=== PATIENT | female | born 1960 | race Caucasian/White ===

== ENCOUNTER → 2016-09-11 | Outpatient (CLI) | payer BC ==
--- NOTE | 2016-09-12 06:53 | MM ---
Reason for exam: screening (asymptomatic). Last mammogram was performed 2 years and 10 months ago. History: Patient is nulliparous. Benign right mammotome panel of the right breast, December 20, 2006. Took hormonal contraceptives for 10 years beginning at age 32. Physical Findings: A clinical breast exam by your physician is recommended on an annual basis and results should be correlated with mammographic findings. MG 3D Screening Mammo W/Cad Bilateral CC and MLO view(s) were taken. Prior study comparison: November 09, 2013, bilateral digital screening mammo w/CAD. July 25, 2012, CAD bilateral diagnostic mammogram. January 29, 2011, [facility] DIGITAL LEFT BREAST MAMMOGRAM w/CAD. The breast tissue is heterogeneously dense. This may lower the sensitivity of mammography. Previous mammotome biopsy in the right breast. New 1.4cm mass posterior upper outer quadrant right breast. A nodular asymmetry medial right breast posteriorly appears more defined. ASSESSMENT: Incomplete: need additional imaging evaluation, BI-RAD 0 RECOMMENDATION: Special view mammogram of the right breast. If lesion persists on supplemental views, image directed ultrasound is recommended. [facility] will attempt to contact patient to return for supplemental views and ultrasound if indicated.
== END | disposition home or self-care (01) ==
LOC: RADMAMWWP 06:54
PROVIDERS: ATTEND Internal Medicine
DX: Z12.31 Encounter for screening mammogram for malignant neoplasm of breast (principal)
CPT/HCPCS: 77063; G0202

== ENCOUNTER → 2016-09-13 | Outpatient (CLI) | payer BC ==
--- NOTE | 2016-09-17 08:17 | MM ---
Reason for exam: additional evaluation requested from abnormal screening. Last mammogram was performed less than 1 month ago. History: Patient is nulliparous. Benign right mammotome panel of the right breast, December 20, 2006. Took hormonal contraceptives for 10 years beginning at age 32. Physical Findings: Nurse Summary: 1cm nodule in the right breast at 1 o'clock (nurse kp). MG 3D Work Up W/Cad RT LM, spot compression CC, spot compression CCRL, and spot compression LM view(s) were taken of the right breast. Prior study comparison: September 11, 2016, bilateral MG 3d screening mammo w/cad. November 09, 2013, bilateral digital screening mammo w/CAD. The breast tissue is heterogeneously dense. This may lower the sensitivity of mammography. Finding: There is a 12 mm equal density (isodense), round mass in the upper outer quadrant of the right breast. Questionable 4.3mm nodule in the medial right breast. New finding since September 11, 2016 and November 09, 2013. These results were verbally communicated with the patient and result sheet given to the patient on 09/13/16. ASSESSMENT: Incomplete: need additional imaging evaluation, BI-RAD 0 RECOMMENDATION: Ultrasound of the right breast.
--- NOTE | 2016-09-17 08:20 | USB ---
Reason for exam: additional evaluation requested from abnormal screening. History: Patient is nulliparous. Benign right mammotome panel of the right breast, December 20, 2006. Took hormonal contraceptives for 10 years beginning at age 32. US Breast Workup RT Right breast ultrasound including all four quadrants, the retroareolar region and axilla demonstrates a 0.95 x 0.65 x 0.94cm mixed lesion at 6 o'clock, a 0.32 x 0.19 x 0.28cm lesion too small to characterize at 8 o'clock, a 0.56 x 0.46 x 0.54cm solid lesion at 9 o'clock for which a biopsy is recommended and a 1.01 x 0.82 x 0.94cm mixed lesion at 9:30. These results were verbally communicated with the patient and result sheet given to the patient on 09/13/16. ASSESSMENT: Suspicious, BI-RAD 4 RECOMMENDATION: Ultrasound core biopsy of the right breast. Called Dr. Renner with mammographic findings and has scheduled an appointment for the patient for 10/17/16 at 3:[address] Lim. Biopsy scheduled for 09/26/16 at 12:20. PRELIMINARY REPORT CALLED AND FAXED TO DR. LIM ON 09/17/16 AT 300/TP.
== END | disposition home or self-care (01) ==
LOC: RADMAMWWP 14:02
PROVIDERS: ATTEND Internal Medicine
DX: R92.8 Other abnormal and inconclusive findings on diagnostic imaging of breast (principal)
CPT/HCPCS: 76641; G0206; G0279

== ENCOUNTER → 2016-09-26 | Day surgery (SDC) | payer BC ==
--- NOTE | 2016-09-26 13:37 | USB ---
EXAMINATION TYPE: US discontinued breast core RT DATE OF EXAM: 09/26/2016 12:52 PM COMPARISON: 09/13/2016 ultrasound HISTORY: Previous abnormal ultrasound TECHNIQUE: Real-time linear array sonography is performed with attention to the approximate 9:00 midd le position right breast. FINDINGS: Persistent suspicious abnormality is not identified. There is in the antiradial projection between 2 lobes some falloff in hypodensity which appears to correspond to the previous abnormality. However, orthogonal radial imaging this area appears normal with elongation into normal parenchymal l obes. No persistent suspicious mass or hypodensity is evident. No persistent shadowing is evident. Real-time observation is performed. Correlation was made with the previous examination. No additional suspicious areas are within this region. The patient scheduled biopsy was aborted at this time. IMPRESSION: 1. Probably benign findings. 2. BI-RADS 3 Recommendations: 1. Follow-up right breast ultrasound 6 months. 2. Patient should continue monthly self breast exam. 3. Without suspicious radiographic findings, the decision to biopsy would be limited to abnormal clin ical findings. 4. Repeat imaging or additional diagnostic workup could be performed for changing clinical findings.
== END ==
LOC: RADUSWWP 11:28
PROVIDERS: ATTEND Surgery
DX: R92.8 Other abnormal and inconclusive findings on diagnostic imaging of breast (principal); Z53.20 Procedure and treatment not carried out because of patient's decision for unspecified reasons

== ENCOUNTER → 2017-09-17 | Outpatient (CLI) | payer BC ==
--- NOTE | 2017-09-17 10:29 | USB ---
Reason for exam: follow-up at short interval from prior study. History: Patient is nulliparous. US discontinued breast core RT of the right breast, September 26, 2016. Benign right mammotome panel of the right breast, December 20, 2006. Took hormonal contraceptives for 10 years beginning at age 32. Physical Findings: Nurse did not find any significant physical abnormalities on exam. US Breast RT Right breast ultrasound includes all four quadrants, the retroareolar region and axilla. Finding demonstrates a 0.6 x 0.3 x 0.5cm oval, cystic lesion at 1 o'clock and a 0.7 x 0.7 x 0.8cm oval, cystic lesion at 9 o'clock, seen on previous. Sonographic finding are benign but patient is due for a mammogram.. These results were verbally communicated with the patient and result sheet given to the patient on 09/17/17. ASSESSMENT: Incomplete: need additional imaging evaluation, BI-RAD 0 RECOMMENDATION: Follow-up diagnostic mammogram of both breasts.
--- NOTE | 2017-09-17 10:32 | MM ---
Reason for exam: additional evaluation requested from abnormal screening. Last mammogram was performed 1 year ago. History: Patient is nulliparous. US discontinued breast core RT of the right breast, September 26, 2016. Benign right mammotome panel of the right breast, December 20, 2006. Took hormonal contraceptives for 10 years beginning at age 32. MG 3D Diag Mammo W/Cad CARLEEN Bilateral CC and MLO view(s) were taken. Prior study comparison: September 13, 2016, right breast MG 3d work up w/cad RT. September 11, 2016, bilateral MG 3d screening mammo w/cad. November 09, 2013, bilateral digital screening mammo w/CAD. July 25, 2012, CAD bilateral diagnostic mammogram. The breast tissue is heterogeneously dense. This may lower the sensitivity of mammography. There is a 1.0cm right mass at posterior depth at the 9 o'clock position appearing slightly smaller than in 2017, however this was not seen on other priors. Ultrasound was performed with no sonographic correlate. 6 month follow up diagnostic right mammogram and ultrasound are recommended. Other right masses correspond to sonographic cysts. No suspicious abnormality in the left breast. Stable left focal asymmetry back to 2013. These results were verbally communicated with the patient and result sheet given to the patient on 09/17/17. ASSESSMENT: Probably benign, BI-RAD 3 RECOMMENDATION: Follow-up diagnostic mammogram and ultrasound of the right breast in 6 months.
== END | disposition home or self-care (01) ==
LOC: RADUSWWP 07:32
PROVIDERS: ATTEND Internal Medicine
DX: R92.8 Other abnormal and inconclusive findings on diagnostic imaging of breast (principal)
CPT/HCPCS: 77066; 76641; G0279

== ENCOUNTER → 2017-09-17 | Outpatient (CLI) | payer BC ==
--- NOTE | 2017-09-17 10:58 | BD ---
EXAMINATION TYPE: MG DEXA axial skeleton. DATE OF EXAM: 09/17/2017 CLINICAL HISTORY: Osteoporosis screening. Postmenopausal female. Height: 67.25 Weight: 227 FRAX RISK QUESTIONS: Alcohol (3 or more units per day): no Family History (Parent hip fracture): no Glucocorticoids (More than 3mos): no (Ex: prednisone, prednisolone, methylprednisolone, dexamethasone, and hydrocortisone). History of Fracture in Adulthood: no Secondary Osteoporosis: 1. Type 1 Diabetes: no 2. Hyperthyroidism: no 3. Menopause before 45: n/a 4. Malnutrition: no 5. Chronic liver disease: no Rheumatoid Arthritis: no Current Tobacco Use: no RISK FACTORS HISTORY OF: History Of Hip surgery: yes, as child; bilateral osteotomy Family History of Osteoporosis: no Active: no Diet low in dairy products/other sources of calcium: no Postmenopausal woman: no If Premenopausal, do you have irregular periods: yes, LMP May 2017 Take estrogen and/or progesterone medications: not now How long: about 10 years hormonal contraceptives Lost more than 2 inches in height since high school: no Frequent falls: no Poor Health: no Hyperparathyroidism: no Adrenal Insufficiency: no MEDICATIONS: Prednisone or other steroids: no Thyroid Medications: yes Which medication: Cor[place] How Long: at least 15 years Osteoporosis Medications:no Additional Medications: calcium, blood pressure meds Additional History: Hashimotos EXAM MEASUREMENTS: Bone mineral densitometry was performed using the [employer] System. Bone mineral density as measured about the Lumbar spine is: ----- L1-L4(G/cm2): 1.177 T Score Values are as follows: ----- L2: -0.3 ----- L3: -0.9 ----- L4: 1.3 ----- L1-L4: 0.0 Bone mineral density BASELINE Bone mineral density about the R hip (g/cm2): 0.996 Bone mineral density about the L hip (g/cm2): 0.955 T Score values are as follows: -----R Neck: -0.3 -----L Neck: -0.6 -----R Total: -0.2 -----L Total: -1.0 Bone mineral density BASELINE IMPRESSION: Normal (Values between +1 and -1 indicate normal bone mass). Consider repeating this study in 5 year s or sooner if there is some new clinical indication. NOTE: T-SCORE=SD OF THE YOUNG ADULT MEAN.
== END | disposition home or self-care (01) ==
LOC: RADBDWWP 07:34
PROVIDERS: ATTEND Obstetrics & Gynecology
DX: Z13.820 Encounter for screening for osteoporosis (principal)
CPT/HCPCS: 77080

== ENCOUNTER → 2018-08-11 | Outpatient (CLI) | payer BC ==
--- NOTE | 2018-08-12 15:16 | USB ---
Reason for exam: follow-up at short interval from prior study. History: Patient is nulliparous. US discontinued breast core RT of the right breast, September 26, 2016. Benign right mammotome panel of the right breast, December 20, 2006. Took hormonal contraceptives for 10 years beginning at age 32. Physical Findings: Nurse did not find any significant physical abnormalities on exam. US Breast RT Right complete breast ultrasound includes all four quadrants, the retroareolar region and axilla. Finding demonstrates No cystic or solid lesion seen. These results were verbally communicated with the patient and result sheet given to the patient on 08/11/18. ASSESSMENT: Probably benign, BI-RAD 3 RECOMMENDATION: Follow-up diagnostic mammogram of both breasts in 2 months. Patient is due for annual in September. Back on schedule.
== END ==
LOC: RADUSWWP 08:50
PROVIDERS: ATTEND Internal Medicine
DX: R92.8 Other abnormal and inconclusive findings on diagnostic imaging of breast (principal)

== ENCOUNTER → 2018-08-28 | Outpatient (CLI) | payer BC ==
--- NOTE | 2018-08-28 20:57 | CONS ---
CONSULTATION DATE OF SERVICE: 08/28/2018 58-year-old lady who has been evaluated in [facility] Center for difficulties to initiate sleep and multiple awakenings from sleep with snoring. HISTORY OF PRESENT ILLNESS/SLEEP-WAKE EVALUATION: SLEEP SCHEDULE: Patient's usual sleep schedule on working days from 9:30 p.m. until 4:30 pm and on weekends from around 11 p.m. to 6 a.m. FALLING ASLEEP: She does have problem falling asleep. Has TV set in bedroom. DURING SLEEP: She usually sleeps on the side position and wakes up from sleep every 1-1/2 to 3 hours sleep about 3 times per night with 1 episode of nocturia. No history of hypnagogic hallucinations, sleep paralysis or cataplexy. DURING THE DAY/SLEEP WAKE EVALUATION: In the morning patient wakes up tired make her sleepy during the day. [place] Sleepiness Scale is 8. Usually she does not take any naps. 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 PAST SURGICAL HISTORY: Surgical treatment of carpal tunnel syndrome, surgery for correction of position of low jaw 36 years ago. MEDICATIONS: Bisoprolol, hydrochlorothiazide and thyroid supplement. SOCIAL HISTORY: Negative for smoking. Alcohol consumption occasional. FAMILY HISTORY: Thyroid problems. REVIEW OF SYSTEMS: Difficult to initiate sleep, multiple awakenings from sleep, tiredness, sleepiness during the day. PHYSICAL EXAM: lady without distress. BP 126/79, HR 70, RR 16, height 5 feet 7 inches, weight 235 pounds. Body mass index 36.8, temperature 98.4, oxygen saturation at room air 95%. Oropharynx extremely low position of soft palate, Mallampati 4, wide neck is 17-1/4 inches in circumference. Abdomen slightly obese. Neck Supple, no JVD. Thyroid is not palpable. LUNGS Clear to percussion and to auscultation. Good air exchange. No wheezing or rhonchi. HEART S1, S2 regular. No murmurs, gallops, or rubs. ABDOMEN Soft and nontender. Bowel sounds are present. No organomegaly appreciated. EXTREMITIES No clubbing or cyanosis. DEEP FAT FRY COOK Awake, alert, and oriented X3. Cranial nerves 2 to 7 intact. There is no fasciculation or atrophy. noted. No focal deficits observed. IMPRESSION: 1. Snoring, multiple awakenings from sleep, extremely low position of soft palate, wide neck, obstructive sleep apnea-hypopnea syndrome. 2. Obesity, BMI 36.8. 3. Hypertension. 4. Hypothyroidism secondary to Montez's thyroiditis. 5. Status post surgical treatment of carpal tunnel syndrome bilaterally. 6. Status post low jaw surgery for correction of position of the jaw at age of 22. PLAN: 1. Polysomnography for evaluation of patient's breathing during sleep. 2. CPAP/BiPAP titration if sleep study confirms obstructive sleep apnea-hypopnea syndrome. 3. Preferable position during sleep on the side. 4. No driving if patient feels any sleepiness. 5. I will see patient for follow up visit to explain results of testing and following plan. Psychological techniques for treatment of insomnia should include stimulus control, paradoxical intention, worry time, no watching clock in bedroom. Thank you very much for referring this patient for consultation. Sincerely, Fernando Dean MD, PhD, FAASM Diplomat of [employer] Lumber Scaler of [facility] [place] MMODL / MELISSAN: [id number] /
== END ==
LOC: SLEEP 15:18
PROVIDERS: ATTEND Internal Medicine
DX: G47.33 Obstructive sleep apnea (adult) (pediatric) (principal); E66.9 Obesity, unspecified; I10 Essential (primary) hypertension; E03.9 Hypothyroidism, unspecified; E06.3 Autoimmune thyroiditis; Z98.890 Other specified postprocedural states; Z99.89 Dependence on other enabling machines and devices; Z79.899 Other long term (current) drug therapy; Z68.36 Body mass index [BMI] 36.0-36.9, adult
CPT/HCPCS: 99211

== ENCOUNTER → 2018-10-30 | Outpatient (CLI) | payer BC ==
--- NOTE | 2018-10-30 18:37 | PN ---
PROGRESS NOTE DATE OF SERVICE: 10/30/2018 This patient is a 58-year-old lady who has been followed in Sleep Center and is here to discuss results of her sleep study and the following plan. I discussed results of her sleep study with the patient in detail. Sleep study showed moderate obstructive sleep apnea-hypopnea syndrome with apnea-hypopnea index 19.3 and oxygen desaturation to 68.8%. Oxygen was below normal for 11.2 minutes during the sleep study. Also sleep study showed moderate periodic limb movements, 42.4 per hour with 2.2 microarousals per hour. There were some abnormalities of sleep architecture with a low amount of delta sleep and REM sleep. [place] Sleepiness Scale today is 7. MEDICATIONS: 1. Bisoprolol. 2. Hydrochlorothiazide. 3. Thyroid supplement. PHYSICAL EXAMINATION: GENERAL: A pleasant patient in no distress. VITAL SIGNS: BP 152/87, HR 80, RR 16, height 5 feet 7 inches, weight 237, BMI 37. Oxygen saturation at room air 97%. HEENT: PERRLA, EOMI. Evaluation of oropharynx showed tongue protrudes midline. Low position of soft palate. Mallampati IV. Slight restriction of nasal breathing. NECK: Supple. No JVD. Thyroid is not palpable. LUNGS: Clear to percussion and to auscultation. Good air exchange. No wheezing or rhonchi. HEART: S1, S2 regular. No murmurs, gallops or rubs. ABDOMEN: Slightly obese. EXTREMITIES: No clubbing or cyanosis. HEALTH CARE MARKETING MANAGER: Awake, alert, and oriented X3. Cranial nerves 2 to 7 intact. There is no fasciculation or atrophy. noted. No focal deficits observed. IMPRESSION: 1. Moderate obstructive sleep apnea-hypopnea syndrome. 2. Moderate periodic limb movements have been documented during the sleep study. 3. Hypertension. 4. Hypothyroidism secondary to history of Montez's thyroiditis. 5. Status post surgical treatment for carpal tunnel syndrome. 6. Status post low jaw surgery for correction of position of jaw after injury at the age of 22. PLAN: 1. We discussed with the patient different options for treatment of sleep apnea, including surgical options, oral appliances, CPAP treatment, losing weight. My recommendation is still to start with CPAP therapy. The patient has difficulties tolerating anything on her face. Consequently I believe it would be useful to do desensitization with the smallest nasal pillow mask, like AirFit P10. 2. Sleep hygiene with regular time in bed for at least 8 hours. 3. Losing weight. 4. No driving if feeling any sleepiness. 5. CPAP titration after desensitization. Thank you very much for allowing me to participate in the management of your patient. Sincerely, Fernando Dean MD, PhD, FAASM Diplomat of [place] [employer] [place] [employer] Maritime Pilot of [facility] [place] MMODL / MELISSAN: [phone] /
== END ==
LOC: SLEEP 14:59
PROVIDERS: ATTEND Internal Medicine
DX: G47.33 Obstructive sleep apnea (adult) (pediatric) (principal); G47.61 Periodic limb movement disorder; I10 Essential (primary) hypertension; E03.9 Hypothyroidism, unspecified; Z98.890 Other specified postprocedural states; Z79.899 Other long term (current) drug therapy

== ENCOUNTER → 2019-02-05 | Outpatient (CLI) | payer BC ==
--- NOTE | 2019-02-05 19:55 | PN ---
PROGRESS NOTE DATE OF SERVICE: 02/05/2019 This patient is a 58-year-old lady who has been followed in Sleep Center for treatment of obstructive sleep apnea-hypopnea syndrome. The patient has moderate obstructive sleep apnea-hypopnea syndrome with apnea-hypopnea index 19.3, and recently she has had some problems with usage of the CPAP equipment secondary to claustrophobia, but now comes in for follow-up visit after starting to use her CPAP equipment, and she is pretty successful with using CPAP with a small nasal pillow, AirFit P10 mask. She does not have episodes of dizziness, which she had before when she was not on treatment with CPAP. [place] Sleepiness Scale today is 4. I checked her CPAP unit. CPAP pressure is in the range of 5 to 13, average pressure 12.3. Leak is 11 L/minute, which is acceptable. Usage is 28/30 nights, and all those nights for more than 4 hours; average usage 7.2 hours per night. Apnea-hypopnea index is only 1.0, which is normal. MEDICATIONS: 1. Bisoprolol. 2. Hydrochlorothiazide. 3. Thyroid supplement. PHYSICAL EXAMINATION: GENERAL: A pleasant patient in no distress. VITAL SIGNS: BP 115/74, HR 87, RR 14, temperature 98.2. Weight 236, height 5 feet 8 inches, body mass index 36. HEENT: PERRLA, EOMI. Evaluation of oropharynx showed tongue protrudes midline. Extremely low position of soft palate. Mallampati IV. NECK: Supple. No JVD. Thyroid is not palpable. LUNGS: Clear to percussion and to auscultation. Good air exchange. No wheezing or rhonchi. HEART: S1, S2 regular. No murmurs, gallops or rubs. ABDOMEN: Obese. EXTREMITIES: No clubbing or cyanosis. APPARATUS OPERATOR: Awake, alert, and oriented X3. Cranial nerves 2 to 7 intact. There is no fasciculation or atrophy. noted. No focal deficits observed. IMPRESSION: 1. Moderate obstructive sleep apnea-hypopnea syndrome; apnea-hypopnea index 19.3. Patient has demonstrated great compliance with treatment on CPAP, benefitting from treatment. 2. Obesity; body mass index 36. 3. Hypertension. 4. Hypothyroidism secondary to history of Montez's thyroiditis. 5. Status post surgical treatment for carpal tunnel syndrome, both hands. 6. Status post low jaw surgery for correction of position of jaw after injury at age 22. PLAN: 1. Patient will continue to use CPAP equipment every night for the whole night. 2. We will maintain prescriptions for all necessary CPAP supplies, including mask, tube, filters. 3. Losing weight. 4. Sleep hygiene with regular time bed for at least 8 hours. 5. No driving if feeling any sleepiness. 6. Follow-up visit in one year; earlier if patient has any problems. Thank you very much for allowing me to participate in the management of your patient. Sincerely, Fernando Dean MD, PhD, FAASM Diplomat of [employer] Steward/Stewardess Second Class of [facility] [place] MMODL / MELISSAN: [phone] /
== END ==
LOC: SLEEP 15:17
PROVIDERS: ATTEND Internal Medicine
DX: G47.33 Obstructive sleep apnea (adult) (pediatric) (principal); E66.9 Obesity, unspecified; I10 Essential (primary) hypertension; E03.9 Hypothyroidism, unspecified; E06.3 Autoimmune thyroiditis; Z98.890 Other specified postprocedural states; Z99.89 Dependence on other enabling machines and devices; Z79.899 Other long term (current) drug therapy; Z68.36 Body mass index [BMI] 36.0-36.9, adult

== ENCOUNTER → 2019-04-27 | Outpatient (CLI) | payer BC ==
--- NOTE | 2019-04-28 13:39 | MM ---
Reason for exam: additional evaluation requested from prior study. Last mammogram was performed 1 year and 7 months ago. History: Patient is postmenopausal and is nulliparous. US discontinued breast core RT of the right breast, September 26, 2016. Benign right mammotome panel of the right breast, December 20, 2006. Took hormonal contraceptives for 10 years beginning at age 32. Physical Findings: Nurse did not find any significant physical abnormalities on exam. MG 3D Diag Mammo W/Cad CARLEEN Bilateral CC and MLO view(s) were taken. Prior study comparison: September 17, 2017, bilateral MG 3d diag mammo w/cad CARLEEN. September 13, 2016, right breast MG 3d work up w/cad RT. The breast tissue is heterogeneously dense. This may lower the sensitivity of mammography. The right masses have resolved on mammogram, prior sonographic cysts. Left lateral asymmetry 4.5cm from nipple. These results were verbally communicated with the patient and result sheet given to the patient on 04/27/19. ASSESSMENT: Incomplete: need additional imaging evaluation, BI-RAD 0 RECOMMENDATION: Ultrasound of the left breast. (lateral)
--- NOTE | 2019-04-28 13:40 | USB ---
Reason for exam: additional evaluation requested from abnormal screening. History: Patient is postmenopausal and is nulliparous. US discontinued breast core RT of the right breast, September 26, 2016. Benign right mammotome panel of the right breast, December 20, 2006. Took hormonal contraceptives for 10 years beginning at age 32. US Breast Limited LT Left limited breast ultrasound including focal area of concern, retroareolar and axilla demonstrates a 0.4 x 0.5 x 0.3cm oval, cystic lesion at 3 o'clock, a 0.5 x 0.5 x 0.4cm round, hyperechoic lesion at 3 o'clock, a 0.4 x 0.3 x 0.2cm oval, cystic lesion at 6 o'clock and a 1.8 x 1.1 x 0.9cm nodes at the axilla. These results were verbally communicated with the patient and result sheet given to the patient on 04/27/19. ASSESSMENT: Benign, BI-RAD 2 RECOMMENDATION: Routine screening mammogram of both breasts in 1 year.
== END | disposition home or self-care (01) ==
LOC: RADMAMWWP 07:01
PROVIDERS: ATTEND Internal Medicine
DX: R92.8 Other abnormal and inconclusive findings on diagnostic imaging of breast (principal)
CPT/HCPCS: 77062; 77066

== ENCOUNTER → 2021-12-21 | Outpatient (CLI) | payer BC ==
--- NOTE | 2021-12-21 09:09 | US ---
EXAMINATION TYPE: US thyroid st tissue head/neck DATE OF EXAM: 12/21/2021 COMPARISON: Prior ultrasound 2012 CLINICAL HISTORY: E03.9 HYPOTHYROID. Hypothyroid GLAND SIZE: Right Lobe: 4.4 x 1.8 x 1.6 cm Overall Parenchyma: heterogenous Left Lobe: 3.7 x 1.4 x 0.9 cm Overall Parenchyma: heterogeneous Isthmus Thickness: 0.5 cm NODULES RIGHT: # of nodules measured on right: 0 LEFT: # of nodules measured on left: 0 ISTHMUS: # of nodules measured in the isthmus: 0 Bilateral neck scanned, no evidence of lymphadenopathy. Heterogeneous thyroid bilaterally without dis crete nodule visualized. Heterogeneous somewhat small sized thyroid without discrete nodule. IMPRESSION: As above
--- NOTE | 2021-12-21 22:41 | US ---
EXAMINATION TYPE: US abdomen complete DATE OF EXAM: 12/21/2021 COMPARISON: NONE CLINICAL HISTORY: R74.8 ELEVATED LIVER ENZYMES. Elevated, LFT's EXAM MEASUREMENTS: Liver Length: 20.5 cm Gallbladder Wall: 0.2 cm CBD: 0.4 cm Spleen: 13.0 cm Right Kidney: 11.0 x 4.3 x 5.9 cm Left Kidney: 11.6 x 5.5 x 5.1 cm Pancreas: wnl, tail obscured by overlying bowel gas Liver: Enlarged, heterogeneous Gallbladder: Probable polyp= 0.3 cm Evidence for sonographic Jimenez's sign: No CBD: wnl Spleen: Upper limits of normal for size Right Kidney: wnl Left Kidney: wnl Upper IVC: wnl Abd Aorta: wnl The visualized liver is heterogeneously hyperechoic. Hepatomegaly is present. Evaluation for focal m asses suboptimal due to the heterogeneity. No surrounding ascites. The intrahepatic portion of the IV C and visualized abdominal aorta are within normal limits. There is no evidence of shadowing mobile cholelithiasis. Incidental tiny 3 mm polyp. No intrahepatic or extrahepatic biliary dilatation. The v isualized portions of the pancreas are homogenous. The spleen is unremarkable. Kidneys are symmetri c and free of hydronephrosis. No renal lesions are seen. IMPRESSION: Heterogeneous hyperechoic appearance of liver consistent with diffuse fatty infiltration and/or underlying hepatocellular disease.
--- NOTE | 2021-12-22 14:03 | MM ---
Reason for Exam: Screening (asymptomatic). Last mammogram was performed 2 year(s) and 8 month(s) ago. Patient History: Menarche at age 17. Patient has no children. Right ovary removed at age 46. Postmenopausal. Hormonal Contraceptives for 10 years from age 32 until age 42. 12/20/2006, Benign Core Biopsy on the right side. 09/26/2016, US discontinued breast core RT on the right side. Risk Values: Elaina 5 year model risk: 1.7%. NCI Lifetime model risk: 8.9%. Prior Study Comparison: 09/13/2016 Right Diagnostic Mammogram, [facility]. 09/17/2017 Bilateral Diagnostic Mammogram, [facility]. 04/27/2019 Bilateral Diagnostic Mammogram, [facility]. Tissue Density: The breast tissue is heterogeneously dense. This may lower the sensitivity of mammography. Findings: Analyzed By CAD. There is a focal asymmetry within the posterior right breast which appears to be an interval change on the craniocaudal view. Additional workup is recommended. There are new grouped round findings calcifications within the posterior right cranial caudal view not clearly evident on the mediolateral view. Additional workup of these calcifications is recommended. This could be artifact not identified on the tomographic images. Overall Assessment: Incomplete: need additional imaging evaluation, BI-RAD 0 Management: Diagnostic Mammogram of the right breast. A clinical breast exam by your physician is recommended on an annual basis and results should be correlated with mammographic findings. Electronically signed and approved by: Ernesto Moncada D.O. Radiologis
== END | disposition home or self-care (01) ==
LOC: RADMAMWWP 07:45
PROVIDERS: ATTEND Internal Medicine
DX: Z12.31 Encounter for screening mammogram for malignant neoplasm of breast (principal); E03.9 Hypothyroidism, unspecified; R74.8 Abnormal levels of other serum enzymes
CPT/HCPCS: 76536; 76700; 77063; 77067

== ENCOUNTER → 2021-12-26 | Outpatient (CLI) | payer BC ==
--- NOTE | 2021-12-28 13:48 | MM ---
Reason for Exam: Additional evaluation requested from abnormal screening. Last screening mammogram was performed less than 1 month ago. Patient History: Menarche at age 17. Patient has no children. Right ovary removed at age 46. Postmenopausal. Hormonal Contraceptives for 10 years from age 32 until age 42. 12/20/2006, Benign Core Biopsy on the right side. 09/26/2016, US discontinued breast core RT on the right side. Risk Values: Elaina 5 year model risk: 1.7%. NCI Lifetime model risk: 8.9%. Tissue Density: Right: The breast tissue is heterogeneously dense. This may lower the sensitivity of mammography. Findings: Analyzed By CAD. Centrally located asymmetric density on the CC view shows no persisting abnormality on 3-D images, appearance unchanged compared back to 2017. A solitary round calcification far posterior 12:00 right breast is unchanged. A few punctate calcifications just adjacent have developed. Six-month follow-up recommended. A benign etiology is suspected. Overall Assessment: Probably benign, BI-RAD 3 Management: Diagnostic Mammogram of the right breast in 6 months. 1. Six-month follow-up diagnostic right breast mammogram for subtle group of round/punctate 12:00 posterior right breast calcifications. 2. Patient should continue monthly self breast exams. 3. This exam should not preclude additional follow-up of suspicious palpable abnormalities. Electronically signed and approved by: Sunshine Milligan M.D. Radiologist
== END | disposition home or self-care (01) ==
LOC: RADMAMWWP 10:12
PROVIDERS: ATTEND Internal Medicine
DX: R92.8 Other abnormal and inconclusive findings on diagnostic imaging of breast (principal)
CPT/HCPCS: 77061; 77065

== ENCOUNTER → 2022-03-02 | Outpatient (CLI) | payer BC | END | disposition home or self-care (01) | LOC: LABWHC1 10:50 | PROVIDERS: ATTEND Internal Medicine | DX: U07.1 COVID-19 (principal) | CPT/HCPCS: 87635 ==

== ENCOUNTER → 2022-07-09 | Outpatient (CLI) | payer BC ==
--- NOTE | 2022-07-09 07:54 | MM ---
Reason for Exam: Follow-up at short interval from prior study. Last screening mammogram was performed 6 month(s) ago. Patient History: Menarche at age 17. Patient has no children. Right ovary removed at age 46. Postmenopausal. Hormonal Contraceptives for 10 years from age 32 until age 42. 12/20/2006, Benign Core Biopsy on the right side. 09/26/2016, US discontinued breast core RT on the right side. Risk Values: Elaina 5 year model risk: 1.7%. NCI Lifetime model risk: 8.7%. Prior Study Comparison: 04/27/2019 Bilateral Diagnostic Mammogram, [facility]. 12/21/2021 Bilateral MG 3D screening mammo w/cad, [facility]. 12/26/2021 Right MG 3D work up w/cad RT, [facility]. Tissue Density: Right: The breast tissue is heterogeneously dense. This may lower the sensitivity of mammography. Findings: Analyzed By CAD. Stable scattered and loosely grouped benign-appearing calcifications are redemonstrated throughout the right breast. Benign-appearing right axillary lymph nodes are again seen. No new group of microcalcifications. Overall Assessment: Benign, BI-RAD 2 Management: Screening Mammogram of both breasts in 6 months. Back on bilateral annual schedule. Results were given to the patient verbally at the time of exam. Electronically signed and approved by: Pranav Olguin M.D.
== END | disposition home or self-care (01) ==
LOC: RADMAMWWP 06:57
PROVIDERS: ATTEND Family Medicine
DX: R92.1 Mammographic calcification found on diagnostic imaging of breast (principal); Z78.0 Asymptomatic menopausal state; Z90.721 Acquired absence of ovaries, unilateral
CPT/HCPCS: 77061; 77065

== ENCOUNTER → 2023-01-08 | Outpatient (CLI) | payer BC ==
--- NOTE | 2023-01-08 08:52 | MM ---
Reason for Exam: Screening (asymptomatic). Last screening mammogram was performed 12 month(s) ago. Patient History: Menarche at age 17. Patient has no children. Right ovary removed at age 46. Postmenopausal. Hormonal Contraceptives for 10 years from age 32 until age 42. 12/20/2006, Benign Core Biopsy on the right side. 09/26/2016, US discontinued breast core RT on the right side. Risk Values: Elaina 5 year model risk: 1.7%. NCI Lifetime model risk: 8.7%. Prior Study Comparison: 09/11/2016 Bilateral Screening Mammogram, [facility]. 09/13/2016 Right Diagnostic Mammogram, [facility]. 09/17/2017 Bilateral Diagnostic Mammogram, [facility]. 04/27/2019 Bilateral Diagnostic Mammogram, [facility]. 12/21/2021 Bilateral MG 3D screening mammo w/cad, [facility]. 12/26/2021 Right MG 3D work up w/cad RT, [facility]. 07/09/2022 Right MG 3D diag mammo w/cad RT, [facility]. Tissue Density: The breast tissue is heterogeneously dense. This may lower the sensitivity of mammography. Findings: Analyzed By CAD. Areas of asymmetric density remain unchanged. Chronic nodularity lateral posterior left breast. There is no suspicious group of microcalcifications or new suspicious mass in either breast. Overall Assessment: Benign, BI-RAD 2 Management: Screening Mammogram of both breasts in 1 year. . Patient should continue monthly self-breast exams. A clinical breast exam by your physician is recommended on an annual basis. This exam should not preclude additional follow-up of suspicious palpable abnormalities. Note on Elaina scores and lifetime risk: 1. A Elaina score greater than 3% is considered moderate risk. If this is the case, consider specialist referral to assess eligibility for a risk reducing agent. 2. If overall lifetime risk for the development of breast cancer is 20% or higher, the patient may qualify for future screening with alternating mammogram and breast MRI. Electronically signed and approved by: Sunshine Milligan M.D. Radiologist
== END | disposition home or self-care (01) ==
LOC: RADMAMWWP 06:58
PROVIDERS: ATTEND Family Medicine
DX: Z12.31 Encounter for screening mammogram for malignant neoplasm of breast (principal); Z78.0 Asymptomatic menopausal state
CPT/HCPCS: 77063; 77067

== ENCOUNTER → 2024-01-10 | Outpatient (CLI) | payer BC ==
--- NOTE | 2024-01-13 13:27 | MM ---
Reason for Exam: Screening (asymptomatic). Last screening mammogram was performed 12 month(s) ago. Patient History: Menarche at age 17. Patient has no children. Right ovary removed at age 46. Postmenopausal. Hormonal Contraceptives for 10 years from age 32 until age 42. 12/20/2006, Benign Core Biopsy on the right side. 09/26/2016, US discontinued breast core RT on the right side. Risk Values: Elaina 5 year model risk: 1.8%. NCI Lifetime model risk: 8.5%. Prior Study Comparison: 12/26/2021 Right MG 3D work up w/cad RT, [facility]. 07/09/2022 Right MG 3D diag mammo w/cad RT, [facility]. 01/08/2023 Bilateral MG 3D screening mammo w/cad, [facility]. Tissue Density: The breasts are heterogeneously dense, which may obscure small masses. Findings: Analyzed By CAD. Right breast: There is no suspicious group of microcalcifications or new suspicious mass. Left breast: There is no suspicious group of microcalcifications or new suspicious mass. Overall Assessment: Negative, BI-RAD 1 Management: Screening Mammogram of both breasts in [address] [facility] will attempt to contact patient to return for supplemental views and ultrasound if indicated. Patient should continue monthly self-breast exams. A clinical breast exam by your physician is recommended on an annual basis. This exam should not preclude additional follow-up of suspicious palpable abnormalities. Note on Elaina scores and lifetime risk: 1. A Elaina score greater than 3% is considered moderate risk. If this is the case, consider specialist referral to assess eligibility for a risk reducing agent. 2. If overall lifetime risk for the development of breast cancer is 20% or higher, the patient may qualify for future screening with alternating mammogram and breast MRI. Electronically signed and approved by: Mic Perkins DO
== END | disposition home or self-care (01) ==
LOC: RADMAMWWP 07:00
PROVIDERS: ATTEND Family Medicine
DX: Z12.31 Encounter for screening mammogram for malignant neoplasm of breast (principal); R92.333 Mammographic heterogeneous density, bilateral breasts; Z78.0 Asymptomatic menopausal state
CPT/HCPCS: 77063; 77067

== ENCOUNTER → 2025-01-25 | Outpatient (CLI) | payer BC ==
--- NOTE | 2025-01-25 07:43 | MM ---
Reason for Exam: Screening (asymptomatic). Last mammogram was performed 1 year(s) and 1 month(s) ago. Patient History: Menarche at age 17. Patient has no children. Right ovary removed at age 46. Postmenopausal. Hormonal Contraceptives for 10 years from age 32 until age 42. 12/20/2006, Benign Core Biopsy on the right side. 09/26/2016, US discontinued breast core RT on the right side. Risk Values: Elaina 5 year model risk: 1.8%. NCI Lifetime model risk: 8.2%. Prior Study Comparison: 07/09/2022 Right MG 3D diag mammo w/cad RT, [facility]. 01/08/2023 Bilateral MG 3D screening mammo w/cad, [facility]. 01/10/2024 Bilateral MG 3D screening mammo w/cad, [facility]. Tissue Density: The breasts are heterogeneously dense, which may obscure small masses. Findings: Analyzed By CAD. A few small scattered benign appearing round calcifications bilaterally are redemonstrated. There is no suspicious group of microcalcifications or new suspicious mass in either breast. Overall Assessment: Benign, BI-RAD 2 Management: Screening Mammogram of both breasts in 1 year. . Patient should continue monthly self-breast exams. A clinical breast exam by your physician is recommended on an annual basis. This exam should not preclude additional follow-up of suspicious palpable abnormalities. Note on Elaina scores and lifetime risk: 1. A Elaina score greater than 3% is considered moderate risk. If this is the case, consider specialist referral to assess eligibility for a risk reducing agent. 2. If overall lifetime risk for the development of breast cancer is 20% or higher, the patient may qualify for future screening with alternating mammogram and breast MRI. [facility], , 01/25/2025 7:40 AM. Electronically signed and approved by: Pranav Olguin M.D.
== END | disposition home or self-care (01) ==
LOC: RADMAMWWP 06:57
PROVIDERS: ATTEND Family Medicine
DX: Z12.31 Encounter for screening mammogram for malignant neoplasm of breast (principal); R92.333 Mammographic heterogeneous density, bilateral breasts; R92.1 Mammographic calcification found on diagnostic imaging of breast; Z78.0 Asymptomatic menopausal state; Z92.0 Personal history of contraception
CPT/HCPCS: 77063; 77067